=== PATIENT | female | born 1990 | race Caucasian/White ===

== ENCOUNTER 2021-03-01 20:33 | Emergency (ER) | payer SELFPAY | END 2021-03-01 21:02 | disposition home or self-care (01) | LOC: CSHERS 20:33 | DX: L03.115 Cellulitis of right lower limb (principal); D50.9 Iron deficiency anemia, unspecified; F17.210 Nicotine dependence, cigarettes, uncomplicated | CPT/HCPCS: 99283 ==

== ENCOUNTER 2022-02-24 12:58 | Emergency (ER) | payer SELFPAY ==
[2022-02-24] MEDS ORDERED: Ketorolac Tromethamine 30 MG/ML VIAL ONE (13:53)
== END 2022-02-24 13:58 | disposition home or self-care (01) ==
LOC: CSHERS 12:58
DX: K02.9 Dental caries, unspecified (principal); F17.210 Nicotine dependence, cigarettes, uncomplicated
CPT/HCPCS: 99282; J1885